=== PATIENT | female | born 1955 ===

== ENCOUNTER 2016-07-27 09:19 | Emergency (ER) | payer MEDICAID, OTHER ==
[2016-07-27 09:19] VITALS: BMI 26.9
[2016-07-27 09:26] VITALS: BP 112/61; PULSE 68; RESP 18; TEMP 98.2; O2SAT 99
--- NOTE | 2016-07-27 10:12 | ED PDOC ---
HPI: Back Time Seen by Provider: 07/27/16 10:01 Chief Complaint (Nursing): Back Pain Chief Complaint (Provider): Back pain right History Per: Patient History/Exam Limitations: no limitations Onset/Duration Of Symptoms: Days (Yesterday) Current Symptoms Are (Timing): Still Present Additional Complaint(s): Pt. was pulling a garbage yesterday with her right arm and 20 min later started getting right mid side back pain. No numbness, tingles, weakness. No radiation of pain. Pain on moving around. No abd pain, dysuria, diarrhea. No fever. No incontinence or constipation. Ambulating with no issues. Past Medical History Reviewed: Nursing Documentation, Vital Signs Vital Signs: Last Vital Signs Temp 98.2 F 07/27/16 09:25 Pulse 68 07/27/16 09:25 Resp 18 07/27/16 09:25 BP 112/61 07/27/16 09:25 Pulse Ox 99 07/27/16 09:25 - Medical History PMH: Diabetes (NIDDM), HTN, Hypercholesterolemia - Surgical History Surgical History: Appendectomy, Cholecystectomy - Family History Family History: States: Unknown Family Hx - Social History Current smoker - smoking cessation education provided: No Alcohol: None Drugs: Denies - Immunization History Hx Tetanus Toxoid Vaccination: No Hx Influenza Vaccination: Yes (2013) Hx Pneumococcal Vaccination: No - Home Medications Home Medications: Ambulatory Orders Medication Instructions Recorded Meclizine HCl [Antivert/25] 1 tab PO TID PRN #25 tab 09/10/14 MetFORMIN [glucOPHAGE] 1,000 mg PO BID 09/10/14 Ondansetron [Zofran Odt] 1 odt PO BID PRN #6 odt 09/10/14 Sitagliptin Phosphate [Januvia] 50 mg PO BID 09/10/14 Ciprofloxacin/Ciprofloxa HCl 500 mg PO Q12 #20 ter 05/02/15 [Ciprofloxacin] Glimepiride 1 mg PO DAILY 05/02/15 Lisinopril 20 mg PO DAILY 05/02/15 Metronidazole [Flagyl] 500 mg PO TID #30 tablet 05/02/15 Ibuprofen [Motrin] 600 mg PO TID 7 Days 07/27/16 - Allergies Allergies/Adverse Reactions: Allergies Allergy/AdvReac Type Severity Reaction Status Date / Time No Known Allergies Allergy Verified 07/27/16 09:41 Review of Systems ROS Statement: Except As Marked, All Systems Reviewed And Found Negative Musculoskeletal: Positive for: Back Pain Physical Exam - Reviewed Nursing Documentation Reviewed: Yes Vital Signs Reviewed: Yes - Physical Exam Appears: Positive for: Non-toxic, No Acute Distress Head Exam: Positive for: ATRAUMATIC, NORMAL INSPECTION, NORMOCEPHALIC Skin: Positive for: Normal Color, Warm, DRY Neck: Positive for: Normal, Painless ROM Cardiovascular/Chest: Positive for: Regular Rate, Rhythm Respiratory: Positive for: CNT, Normal Breath Sounds Gastrointestinal/Abdominal: Positive for: Normal Exam, Bowel Sounds, Soft. Negative for: Tenderness Back: Positive for: Other (tender mild r lateral mid back; no erythema). Negative for: L CVA Tenderness, R CVA Tenderness, Muscle Spasm Extremity: Positive for: Normal ROM. Negative for: Tenderness, Pedal Edema Neurologic/Psych: Positive for: Alert, Oriented - ECG O2 Sat by Pulse Oximetry: 99 Pulse Ox Interpretation: Normal - Progress ED Course And Treament: 1135: Stable. AAOx3. Pain free. Tolerated po. Ambulated. Fu with pcp. Disposition - Clinical Impression Clinical Impression: Back pain - Patient ED Disposition Is Patient to be Admitted: No Counseled Patient/Family Regarding: Studies Performed, Diagnosis, Need For Followup, Rx Given - Disposition Referrals: [facility] [Outside] - 07/28/16 Disposition: Routine/Home Disposition Time: 11:40 Condition: STABLE Additional Instructions: Return if not better in 3 days. Prescriptions: Ibuprofen [Motrin] 600 mg PO TID 7 Days Instructions: Back Pain (ED)
[2016-07-27 10:26] LABS: RBC URINE 3 /hpf (0-3); URINE BILIRUBIN NEGATIVE (NEGATIVE); URINE BLOOD NEGATIVE (NEGATIVE); URINE COLOR YELLOW (YELLOW); URINE GLUCOSE (UA) NEG (Normal); URINE KETONE NEGATIVE (NEGATIVE); URINE LEUKOCYTE ESTERASE TRACE Leu/uL (Negative); URINE PROTEIN NEGATIVE (NEGATIVE); URINE UROBILINOGEN 0.2-1.0 mg/dL (0.2-1.0); WBC URINE 1 /hpf (0-5)
== END 2016-07-27 12:22 | disposition home or self-care (01) ==
LOC: H.ER 09:19
DX: M54.9 Dorsalgia, unspecified (principal); E11.9 Type 2 diabetes mellitus without complications; E78.00 Pure hypercholesterolemia, unspecified; I10 Essential (primary) hypertension; Z79.84 Long term (current) use of oral hypoglycemic drugs; Z79.899 Other long term (current) drug therapy